=== PATIENT | male | born 1945 | race Caucasian/White ===

== ENCOUNTER 2017-07-26 19:53 | Emergency (ER) | payer MEDICARE, OTHER ==
[2017-07-26] MEDS ORDERED: NITROGLYCERIN 0.4 MG/TAB BTL SL PRN (20:05)
[2017-07-26] MEDS ORDERED: ASPIRIN 81 MG TAB.CHEW PO ONE ×2 (20:05→20:13)
[2017-07-26] MEDS ORDERED: ASPIRIN 81 MG TAB.CHEW ONE (20:08)
[2017-07-26 20:21] LABS: Hematocrit 41.7 % (42.0-52.0); Hemoglobin 14.7 gm/dL (13.5-18.0); Mean Cell Volume 84.9 fl (78-100); Mean Corpuscular Hemoglobin 29.9 pg (27-31); Mean Corpuscular Hgb Conc 35.3 g/dl (32-36); Mean Platelet Volume 9.7 fl (6.0-9.5); Neutrophil # 6.3 K/mm3 (1.3-6.0); Neutrophil % 71.4 % (42-75.0); Platelet Count 243 K/mm3 (150-450); Red Blood Count 4.91 M/mm3 (4.7-6.0); Red Cell Distribution Width 12.1 % (11.5-14.0); White Blood Count 8.8 K/mm3 (4.0-10.5)
[2017-07-26] MEDS ORDERED: HEPARIN SODIUM,PORCINE 5,000 UNITS/ML VIAL IV ONE (20:26)
[2017-07-26] MEDS ORDERED: HEPARIN SODIUM,PORCINE 5,000 UNITS/ML VIAL ONE (20:27)
[2017-07-26 20:36] LABS: Prothrombin Time (Patient) 10.7 Seconds (9.0-11.0)
[2017-07-26] MEDS ORDERED: HEPARIN SODIUM,PORCINE/D5W 25,000 UNITS/500 ML BAG IV ONE (20:36)
[2017-07-26 20:37] LABS: Anion Gap 12.5 mmol/L (6.8-13.8); BUN/Creatinine Ratio 12.9 (9.0-21.6); Bilirubin, Total 0.4 mg/dL (0.0-1.1); Ca. Corrected For Albumin 8.3 mg/dL (8.4-10.2); Calcium * 8.6 mg/dL (7.9-10.9); Carbon Dioxide 29.2 mmol/L (24-32.6); INR 1.07 INR (0.90-1.10); Partial Thrombolplastin Time 26.9 Seconds (24-32); Potassium 3.7 mmol/L (3.4-4.6); Total Protein 7.1 gm/dL (6.2-8.2); Troponin I 0.976 ng/ml (0.00-0.10)
[2017-07-26 20:44] VITALS: BP 149/61
[2017-07-26] MEDS ORDERED: HEPARIN SODIUM,PORCINE/D5W 25,000 UNITS/500 ML BAG IV SCH (20:45)
--- NOTE | 2017-07-26 20:45 | ERNOTE ---
Chest Pain/Cardiac HPI Chief Complaint: Chest Pain Time Seen by Provider: 07/26/17 20:05 Source: patient Exam Limitations: no limitations Allergies/Adverse Reactions: Allergies No Known Allergies Allergy (Unverified 07/26/17 20:12) Home Medications: HOME MEDICATIONS Benazepril HCl 15 mg PO DAILY 07/26/17 [Last Taken Unknown] glipiZIDE [Glipizide] 10 mg PO BID 07/26/17 [Last Taken Unknown] metFORMIN HCL [Metformin HCl] 1,000 mg PO BID 07/26/17 [Last Taken Unknown] Narrative: Approx 18:30 tonight pt was making his bed and had onset of chest pressure with shortness of breath and diaphoresis. He states he has had similar episodes for the past 3-5 days that have been less severe and last about 20 minutes. Pt arrived somewhat diaphoretic according to nursing staff. He states his chest pressure has resolved. Timing: intermittent Severity/Quality: moderate, pressure Location: substernal Chest Pain Radiation: no radiation Activities at Onset: activity - mild Modifying Factors - Improves: Present: nothing Modifying Factors - Worsens: Present: exercise Aspirin Treatment Today: 81 mg x 1 - at home, 81 mg x 3, provided by ED - upon arrival Associated Symptoms: Present: shortness of breath, diaphoresis. Absent: nausea Prior Chest Pain/Cardiac Workup: Reports: prior chest pain - past 3-5 days Review of Systems - Review of Systems Constitutional: Present: diaphoresis, fatigue EYE: Present: no symptoms reported ENT: Present: no symptoms reported Respiratory: Present: shortness of breath Cardiology: Present: See HPI, chest pain. Absent: edema Genitourinary: Present: no symptoms reported Musculoskeletal: Present: no symptoms reported Skin: Present: no symptoms reported Neurological: Present: no symptoms reported Endocrine: Present: excessive sweating - Patient's Past Medical History Patient History - Medical: Diabetes Type 2 Patient History - Cardiac/Respiratory: Hypertension Physical Exam - Physical Exam General Appearance: Present: wd/wn, alert, no apparent distress Head Exam: Present: normal inspection, no evidence of injury Eye Exam: Normal inspection: bilateral Ears, Nose, Throat: Present: normal ENT inspection Neck: Present: normal inspection, nontender Respiratory: Present: no respiratory distress, normal breath sounds, no accessory muscle use, lungs clear Cardiovascular/Chest: Present: regular rate, rhythm, no murmur, normal peripheral pulses Gastrointestinal/Abdominal: Present: normal bowel sounds, nontender, nondistended Back Exam: Present: normal inspection, normal range of motion, no CVA tenderness , no vertebral tenderness Extremity Exam: Present: normal inspection, normal range of motion, no edema Neurological Exam: Present: alert, oriented, normal mood/affect, no motor/ sensory deficits Skin Exam: Present: normal color, warm/dry Lymphatic Exam: Present: no adenopathy ED Progress - Results and Orders Patient's Lab Results:: I have reviewed the patient's lab results. Results and Orders: Laboratory Tests 07/26/17 07/26/17 07/26/17 20:18 20:18 20:18 WBC 8.8 Hgb 14.7 Hct 41.7 L Plt Count 243 PT 10.7 INR (Anticoag Therapy) 1.07 PTT (Drew) 26.9 Sodium 134 Potassium 3.7 Chloride 96 L Carbon Dioxide 29.2 Anion Gap 12.5 BUN 13 Creatinine 1.01 Random Glucose 163 H Calcium 8.6 Total Bilirubin 0.4 AST 22 ALT 30 Alkaline Phosphatase 85 Troponin I 0.976 H* Total Protein 7.1 Albumin 4.0 - Vital Signs Patient's Vital Signs:: I have reviewed the patient's vital signs. - EKG EKG: ST elevation - V1 & V2 EKG read: Interp. by me - X-Ray X-Ray #1 X-Ray: chest Interpretation: Reviewed by me X-ray Comments: IMPRESSION: NO ACUTE CARDIOPULMONARY DISEASE IDENTIFIED. Electronically signed by Jos Gaona M.D.. - Progress/Reassessment Chief Complaint: Chest Pain Progress:: Improved Progress Note-Subjective: 07/26/17 20:[address] Kate Watson at [facility] he agrees to accept the patient in transfer. He agreed with heparin bolus and drip. 07/26/17 20:41 received troponin results at 0.976. Called and reported results to Dr. Watson at [facility]. continuing to arrange transport. 07/26/17 20:57 Pt leaving facility per [facility]. INAD, no chest pain at this time. Departure Clinical Impression: Septal myocardial infarction - Departure Disposition: [facility] Condition: Good Referrals: Leobardo Ha DO [Primary Care Provider] -
== END 2017-07-26 20:46 | disposition short-term general hospital (02) ==
LOC: ER 19:53
DX: I10 Essential (primary) hypertension; I21.29 ST elevation (STEMI) myocardial infarction involving other sites; E11.9 Type 2 diabetes mellitus without complications